=== PATIENT | female | born 1960 | race Hispanic/Latino ===

== ENCOUNTER 2016-11-11 09:16 | Outpatient (CLI) | payer BC ==
--- NOTE | 2016-11-14 09:09 | Magnetic Resonance Report ---
BILATERAL BREAST MRI WITHOUT AND WITH CONTRAST: 11/11/16 CLINICAL: Breast cancer survivor status post right partial mastectomy and radiation therapy for DCIS in 2005. In 2012 she had surgical excision after needle biopsy for atypical ductal hyperplasia. In May of this year, she had respiratory discharge if surgery of her right breast with an implant augmentation. This exam was ordered to primarily workup and asymmetry on recent mammogram. COMPARISON: 11/03/16 right mammogram and 10/17/16 bilateral screening mammogram. TECHNIQUE: Axial 1.0-mm T1 without, axial high resolution 2.0-mm T2, axial STIR and axial and sagittal STIR with silicon excitation water saturation, sagittal T2 and axial 1.0-mm dynamic Vibrant high-resolution postcontrast T1 fat saturation sequences on a 1.5 Alana magnet. The examination was performed with an 8 channel dedicated [place] breast coil. Post processing with CAD and subtraction was performed on an [employer] workstation. 20.0 cc of Multihance was injected without incident for the contrast portion of the exam. Consent was obtained prior to the administration of the contrast. FINDINGS: Right: Moderate background parenchymal enhancement. No mass or suspicious enhancement of the right breast. Multiple areas of benign fat necrosis consists of fat lobules with peripheral enhancement. These areas of fat necrosis involves an arc-shaped area of the breast extending from 3 o'clock to 9 o'clock and including the 12 o'clock position. A nonenhancing irregular scar at 3:30 o'clock approximately 5 cm from the nipple measures 2.9 x 1.3 x 2.4 cm and correlates with the recent asymmetry identified on the mammogram. A posterior implant is intact but does not appear to be maximally inflated. Several right axillary lymph nodes have benign morphology with central fat. No suspicious right axillary or right internal mammary lymph nodes. Left: Minimal background parenchymal enhancement. An oval slightly irregular enhancing mass at 2:30 o'clock 4.8 cm from the nipple measures 6.2 x 3.6 x 3.5 mm. It demonstrates heterogeneous enhancement with mixed kinetics, 168% peak enhancement and 47% type III washout. Several areas of benign fat necrosis in the inferior outer breast. Several left axillary lymph nodes have benign morphology with central fat. No suspicious left axillary or left internal mammary lymph nodes. IMPRESSION: 1. Benign nonenhancing scar and multifocal benign fat necrosis of the right breast. No suspicious lesion of the right breast. 2. A 6 mm mass of the left breast requires additional workup. Recommend targeted ultrasound of the left breast at 2:30 o'clock 5 cm from the nipple. Right BIRADS: 2 - - Benign Left BIRADS 0--Needs Additional Imaging
== END 2016-11-11 09:17 | disposition home or self-care (01) ==
LOC: SPVIMAG 09:16
PROVIDERS: ATTEND Surgery
DX: N64.1 Fat necrosis of breast (principal); N63 Unspecified lump in breast; Z90.11 Acquired absence of right breast and nipple; Z98.82 Breast implant status
CPT/HCPCS: 0159T; A9577; C8908; 77059

== ENCOUNTER 2016-11-14 09:29 | Outpatient (CLI) | payer BC ==
--- NOTE | 2016-11-14 10:46 | Ultrasound Report ---
TARGETED LEFT BREAST ULTRASOUND: 11/14/16 09:29:00 CLINICAL: Abnormal MRI COMPARISON: 11/11/16 MRI FINDINGS: Ultrasoundof the left breast demonstrated an oval heterogeneous hypoechoic retroareolar lesion at 3 o'clock approximately 2 cm deep to the nipple. It measures 6 x 5 x 4 mm and demonstrates mild posterior enhancement. Its shape and margin are similar to the lesion identified by MRI. Although the MRI lesion appears to be farther from the nipple, I believe this is the same lesion. IMPRESSION: A 6 mm solid retroareolar mass at 3 o'clock. BI-RADS 4--Suspicious RECOMMENDATION: Ultrasound guided needle core biopsy of the left breast. I discussed the findings and the recommendation for needle core biopsy with the patient at the time of the examination.
== END 2016-11-14 09:30 | disposition home or self-care (01) ==
LOC: SPVIMAG 09:29
PROVIDERS: ATTEND Surgery
DX: N63 Unspecified lump in breast (principal); N64.89 Other specified disorders of breast

== ENCOUNTER 2016-11-28 10:29 | Outpatient (CLI) | payer BC ==
--- NOTE | 2016-11-28 11:48 | Mammography Report ---
LEFT DIGITAL DIAGNOSTIC MAMMOGRAM: 11/28/16 10:29:00 CLINICAL: For clip placement immediately status post ultrasound biopsy. COMPARISON:10/17/16 mammogram FINDINGS: A biopsy clip is now identified at 3:30 o'clock and correlates with the lesion identified by MRI. IMPRESSION: Concordant clip placement status post ultrasound biopsy. BI-RADS CATEGORY: 4--Suspicious Pathology pending.
--- NOTE | 2016-11-28 11:58 | Ultrasound Report ---
VACUUM ASSISTED ULTRASOUND GUIDED NEEDLE CORE BIOPSY WITH CLIP PLACEMENT LEFT BREAST: 11/28/16 10:29:00 CLINICAL: A 6 mm suspicious lesion at 2:30 o'clock by recent MRI. COMPARISON :11/11/16 MRI and 11/14/16 right breast ultrasound. FINDINGS: The procedure was explained to the patient and informed consent was obtained. Ultrasound demonstrated a solid hypoechoic shadowing mass at 3:30 o'clock 4 cm from the nipple. It measures 6 x 5 x 5 mm and correlates with the MRI lesion. The 6 mm subareolar lesion at 3 o'clock described on the previous exam appears to be a benign cyst on this exam. The skin was prepped with Betadine and anesthetized with 1% lidocaine. Vacuum-assisted needle core biopsy was performed through a small dermatotomy using ultrasound guidance, 2% lidocaine with epinephrine for deep anesthesia and a 13-gauge Mammotome Elite biopsy probe. Multiple cores were obtained and placed in formalin. An 11-gauge Mammostar barbell shape clip was then placed within the lesion. Hemostasis was achieved with minimal pressure and a sterile dressing was applied. The patient tolerated the procedure well and there were no apparent complications. A two view mammogram demonstrated concordant clip placement. The patient left the department in good condition with instructions for wound care and follow up. IMPRESSION: Uncomplicated vacuum-assisted ultrasound core biopsy and clip placement breast.
== END 2016-11-28 10:30 | disposition home or self-care (01) ==
LOC: SPVWC 10:29
PROVIDERS: ATTEND Surgery
DX: N60.02 Solitary cyst of left breast (principal); N63 Unspecified lump in breast; N64.1 Fat necrosis of breast
CPT/HCPCS: 19083; 88305; A4648; G0206

== ENCOUNTER 2017-06-28 08:37 | Outpatient (CLI) | payer BC ==
--- NOTE | 2017-06-29 11:36 | Ultrasound Report ---
BILATERAL DIGITAL DIAGNOSTIC MAMMOGRAM with CAD and LEFT BREAST ULTRASOUND: 06/28/17 08:37:00 CLINICAL: Breast cancer history status post right partial mastectomy and radiation therapy for DCIS in 2005. In 2012 she had surgical excision after needle biopsy for atypical ductal hyperplasia. In May of last year she had reconstruction surgery of her right breast with an implant augmentation. She had an ultrasound guided biopsy of the left breast with benign pathology 11/28/16. Pathology revealed benign fat necrosis. This biopsy was performed at 3 o'clock 4 cm from the nipple and was prompted by a finding on breast MRI 11/11/16. That study demonstrated a 6 mm mass at 2:30 o'clock 5 cm from the nipple. COMPARISON:11/28/16 left mammogram and left breast ultrasound and bilateral mammogram is 10/17/16 and 09/29/15 FINDINGS: The breasts are heterogeneously dense, which may obscure small masses. Bilateral surgical scars with benign fat necrosis with typical calcifications. An intact right posterior implant is only partially imaged. No mass, suspicious architectural distortion or suspicious calcifications. An oval 5 mm circumscribed nodule or lymph node in the outer left breast has been stable since 2015. Ultrasound of the left breast (including all four quadrants and the retroareolar area) was performed and demonstrated no solid mass or shadowing to correlate with the previously described MRI finding. A benign intraparenchymal lymph node at 3 o'clock 13 cm from the nipple has central fat and benign morphology and measures 5 x 5 x 6 mm. A hydro-dale clip is identified at 3 o'clock 4 cm from the nipple and there is no adjacent mass or shadowing at the clip. A benign cyst at 12 o'clock 2 cm from nipple measures 5 x 2 x 4 mm. A benign retroareolar cyst at 3 o'clock measures 6 x 3 x 6 mm. A heterogeneous solid shadowing mass at 4 o'clock 4 cm from the nipple measures 2.5 x 0.9 x 1.6 cm and correlates with an area of fat necrosis on the mammogram. An irregular hypoechoic shadowing mass at 5 o'clock 4 cm from the nipple measures 2.4 x 1.4 x 0.9 cm and correlates with fat necrosis on the mammogram. IMPRESSION: Bilateral benign fat necrosis and benign cysts of the left breast. No suspicious finding. BI-RADS CATEGORY: 2 - - Benign RECOMMENDATION: Routine mammographic screening in one year. ACR BI-RADS MAMMOGRAPHIC CODES: 0 = Needs additional imaging evaluation; 1 = Negative; 2 = Benign; 3 = Probably benign; 4 = Suspicious; 5 = Malignant; 6 = Known biopsy-proven malignancy COMMENT: 1. Dense breast tissue, i.e., adenosis, fibrocystic changes, etc., may obscure an underlying neoplasm. 2. Approximately 10% of cancers are not detected with mammography. 3. A negative mammography report should not delay biopsy if a clinically suspicious mass is present. COMMENT: Patient follow-up letters are generated by our [employer] application.
== END 2017-06-28 08:38 | disposition home or self-care (01) ==
LOC: SPVWC 08:37
PROVIDERS: ATTEND Surgery
DX: N60.02 Solitary cyst of left breast (principal); N64.1 Fat necrosis of breast; Z85.3 Personal history of malignant neoplasm of breast; Z90.12 Acquired absence of left breast and nipple; Z98.82 Breast implant status
CPT/HCPCS: 77066

== ENCOUNTER 2018-07-10 08:16 | Outpatient (CLI) | payer BC ==
--- NOTE | 2018-07-10 11:20 | Mammography Report ---
BILATERAL DIGITAL AUGMENTED SCREENING MAMMOGRAM with CAD: 07/10/18 08:16:00 CLINICAL: Routine screening. Breast cancer survivor status post right partial mastectomy and radiation therapy for DCIS and 2006. N. 2013 she had a surgical excision after needle biopsy for atypical ductal hyperplasia. More recently she had reconstruction surgery of her right breast with implant augmentation of the right breast. She had an ultrasound guided biopsy of the left breast with benign pathology (fat necrosis) 11/28/16 that was prompted by a finding on breast MRI 11/11/16. COMPARISON:03/08/18 and 06/28/17 FINDINGS: Routine views including done a left implant displacement views of the right breast. The breasts are heterogeneously dense, which may obscure small masses. Bilateral surgical scars with benign fat necrosis and typical calcifications associated with fat necrosis. A left upper outer biopsy clip. No mass, suspicious architectural distortion or suspicious calcifications. An intact subpectoral right breast implant. IMPRESSION: No mammographic evidence of malignancy. BI-RADS CATEGORY: 2 -- Benign RECOMMENDATION: Routine mammographic screening in one year. ACR BI-RADS MAMMOGRAPHIC CODES: 0 = Needs additional imaging evaluation; 1 = Negative; 2 = Benign; 3 = Probably benign; 4 = Suspicious; 5 = Malignant; 6 = Known biopsy-proven malignancy COMMENT: 1. Dense breast tissue, i.e., adenosis, fibrocystic changes, etc., may obscure an underlying neoplasm. 2. Approximately 10% of cancers are not detected with mammography. 3. A negative mammography report should not delay biopsy if a clinically suspicious mass is present. COMMENT: Patient follow-up letters are generated via our [employer] application.
== END 2018-07-10 08:17 | disposition home or self-care (01) ==
LOC: SPVWC 08:16
PROVIDERS: ATTEND Surgery
DX: Z12.31 Encounter for screening mammogram for malignant neoplasm of breast (principal)
CPT/HCPCS: 77067

== ENCOUNTER 2020-02-11 13:42 | Outpatient (CLI) | payer BC ==
--- NOTE | 2020-02-12 09:16 | Magnetic Resonance Report ---
BILATERAL BREAST MRI WITH AND WITHOUT CONTRAST CLINICAL INFORMATION/INDICATION: Patient has a history of right breast cancer status post lumpectomy and more recent implant reconstruction in 2017. Patient reports a red rash on the lateral side of her right breast since September of this year. TECHNICAL: Coronal STIR, axial T1 and T2-weighted fat sat images were obtained precontrast. Gadoliniu m-based contrast was injected intravenously and serial axial T1 weighted images with fat saturation w ere obtained. 3-D MIP projections, kinetic analysis and subtraction imaging was utilized to evaluate. A dedicated 8-channel breast coil was used for image acquisition. COMPARISON: Prior mammograms 07/17/2019 and 07/24/2019, and breast MRI 11/11/2016 FINDINGS: Right breast: There is scattered fibroglandular tissue. There is mild background parenchymal enhancem ent. There is an intact retropectoral silicone implant. There is stable benign postlumpectomy change seen in the right breast with associated fat necrosis. There has been no significant change compared with the prior MRI in 2017. No suspicious areas of enhancement identified in the right breast. There is no right axillary or internal mammary adenopathy. Left breast: There is scattered fibroglandular tissue. There is mild background parenchymal enhanceme nt. There is stable benign postsurgical change related to prior left breast reduction with associated fat necrosis. There is a benign simple cyst seen in the 12:00 left breast. No suspicious areas of en hancement identified in the left breast. There is no left axillary or internal mammary adenopathy. IMPRESSION: 1. No suspicious MRI abnormality identified in either breast. Specifically, there is no abnormality t o account for the reported red rash on the right breast, therefore clinical correlation is recommende d. Follow up recommendation: Back to schedule. BI-RADS Category 2: Benign. Signer Name: Mikaela Balbuena MD Signed: 02/12/2020 9:11 AM Workstation Name: [id number]
== END 2020-02-11 13:43 | disposition home or self-care (01) ==
LOC: SPVIMAG 13:42
PROVIDERS: ATTEND Surgery
DX: N60.02 Solitary cyst of left breast (principal); R92.8 Other abnormal and inconclusive findings on diagnostic imaging of breast; N64.9 Disorder of breast, unspecified; Z80.3 Family history of malignant neoplasm of breast
CPT/HCPCS: A9577; C8908; 77049

== ENCOUNTER 2020-07-28 14:10 | Outpatient (CLI) | payer BC ==
--- NOTE | 2020-07-29 09:17 | Mammography Report ---
DIGITAL SCREENING MAMMOGRAM WITH CAD, 07/29/2020 CLINICAL INFORMATION / INDICATION: Routine screening mammography. TECHNIQUE: Digital bilateral 2D mammography was obtained in the craniocaudal and mediolateral obliqu e projections. This examination was interpreted with the benefit of Computer-Aided Detection analysis . COMPARISON: 07/17/2019, 07/10/2018 FINDINGS: Breast Density: There are scattered areas of fibroglandular density. . Multiple areas of calcifications are present throughout both breasts with pattern consistent with fat necrosis. There is an enlarging well-circumscribed mass in the 2:00 position of the left breast deejay uring approximately 19 mm. This is proven to be a simple cyst on prior MRI and ultrasound. There is a biopsy clip in the upper outer quadrant of the left breast, not associated with this mass. Right breast lumpectomy and post radiation change again noted. Right silicone retropectoral breast im plant is noted. IMPRESSION: No mammographic evidence of malignancy. Follow up recommendation: Routine yearly BI-RADS Category 2: Benign. A "normal" or negative report should not discourage follow up or biopsy of a clinically significant f inding. A written summary of these findings will be mailed to the patient. The patient will be entered into a mammography reporting system which will generate a reminder letter for the patient's next appointmen t at the appropriate interval. The [employer] recommends yearly mammograms starting at age 40 and continuing as l isaias as a woman is in good health. Breast MRI is recommended for women with an approximate 20-25% or greater lifetime risk of breast cancer, including women with a strong family history of breast or ova sreekanth cancer or who have been treated for Hodgkin's disease. Signer Name: Jessie Hardy MD Signed: 07/29/2020 9:13 AM Workstation Name: [id number]
== END 2020-07-28 14:11 | disposition home or self-care (01) ==
LOC: SPVWC 14:10
PROVIDERS: ATTEND Surgery
DX: Z12.31 Encounter for screening mammogram for malignant neoplasm of breast (principal); N64.89 Other specified disorders of breast; N63.21 Unspecified lump in the left breast, upper outer quadrant; N60.02 Solitary cyst of left breast
CPT/HCPCS: 77067